=== PATIENT | male | born 1950 | race African-American/Black ===

== ENCOUNTER 2017-09-03 20:33 | Emergency (ER) | payer SELFPAY ==
--- NOTE | 2017-09-03 23:54 | Transfer Summary ---
DATE OF TRANSFER: 09/03/2017 EMERGENCY ROOM EVALUATION AND TREATMENT TIME: 12:50 p.m. CODE: Full code. HISTORY OF PRESENT ILLNESS: The patient was put on bed #4. I went to see the patient. I got some history that he does not smoke, but he drank 3 beers today and he drinks alcohol from time to time and today, he drank 3 beers and one bottle of vodka. He signed himself out from [facility] about 2 weeks ago and is homeless. He said he is getting close to 1500 and some dollars per month. He was in the [employer] and when the other questions were asked, he was reluctant to ask any questions. He wanted to also know whether he has any cancers. I said I will have to do some tests to find out if he has any cancer or not. Then, our nurse, Maddie also came at that point in time and explained to him that we will have to do some medical examination, listen to his heart, lungs, belly, and examine him. Order some lab workup and then, find out if there is anything wrong with him and then, advise him any treatment that could be given, but the patient was angry. The patient was upset. The patient did not want to stay at all at this institution. He said he has been out on the street for some time. He can walk 3-4 miles a day and all he wants know where is [facility] and then he can go over there and adjust his medications for schizophrenia and that is what he has, condition called schizophrenia. He has bone cancer on both knees and that is the history, but I do not see any cancer on the knees and no workup was done to be noted. The patient has a history of glaucoma, again, nothing is confirmed. The patient has a history of osteoporosis, arthritis, etc. Nothing is confirmed. The patient's medications that he was taking before according to the triage nurse, Ron; the patient was on Abilify and Prozac. The patient is still hearing voices. The patient is angry. The patient is upset and he did not want to stay over here despite the nurse and me requesting him and also wanting to sign that he is going against medical advice, but he just walked out and he eloped and went against medical advice without signing. His vital signs taken by the triage nurse when he came included temperature 97.4, pulse of 70, respirations 16, blood pressure 122/82, oxygen saturation 98%, height of 5 feet 10 inches, weighing 150 pounds. In conclusion, the patient came with an adjustment of schizophrenic medication and had multiple complaints of bone cancer, both knees; osteoporosis; arthritis; is on psychiatric medication, schizophrenic medication, and psychosis medications; Abilify and Prozac. The patient is allergic to PENICILLIN and despite requesting and asking him to stay, he just left the hospital against medical advice. The stationary engineer supervisor was present and she is aware that Maddie nurse tried very hard, but the patient does not want to listen. I tried also, but the patient does not want to listen, so has signed himself. He eloped, that means he went against medical advice. FINAL DIAGNOSES: Schizophrenia. The patient signed himself out against one of the half-way, which is he says would be [facility] about 2 weeks ago. He drinks alcohol and he claims that he has the following medications, schizophrenia, bone cancer, glaucoma, osteoarthritis, and arthritis and the patient is on Abilify, Prozac that is only history that I could get from him. On examination of the right knee joint, I found that there was a little swelling below the right knee, but that is not the bone cancer, it is just a little trauma to that part of the bone, that is all I could examine. JOB# [id number]
== END 2017-09-03 21:50 | disposition left against medical advice (07) ==
LOC: ER 20:33
DX: F20.9 Schizophrenia, unspecified (principal); M19.90 Unspecified osteoarthritis, unspecified site; Z85.830 Personal history of malignant neoplasm of bone; Z59.0 Homelessness
CPT/HCPCS: Z7502